=== PATIENT | female | born 1985 | race Caucasian/White ===

== ENCOUNTER 2018-08-16 14:24 | Emergency (ER) | payer OTHER ==
[2018-08-16 14:42] VITALS: RESP 18
--- NOTE | 2018-08-16 15:18 | ED ---
General Adult HPI - General Chief complaint: Abdominal Pain Stated complaint: Female /cramps Source: patient, RN notes reviewed, old records reviewed Mode of arrival: ambulatory Limitations: no limitations - History of Present Illness Initial comments: 32-year-old female patient with past medical history of tubal ligation, menstrual cramping, heroin abuse presents to ER for menstrual cramping pain. Patient states that she has experienced symptoms of moderate to heavy menstrual cramping since she was 13. Patient states she follows up with Dr. Tiara Clark out of [place] for her stiff neck loader care. Patient states that the cramping sensation she is experiencing is in her bilateral adnexal region, consistent with symptoms she has had in the past. Pt denies that these cramps are worse than what she has experienced in past. Patient has experienced symptoms for approximately 2 days, since onset of menses. Patient has had a tubal ligation, does not have concern for STI's. Patient denies new onset discharge, dysuria, states menstruation is at baseline. Patient denies chest pain, shortness of breath, nausea vomiting diarrhea, fever or chills. Systemic: Pt denies fatigue, myalgia, fever/chills, rash. Pt denies weakness, night sweats, weight loss. Neuro: Pt denies headache, visual disturbances, syncope or pre-syncope. HEENT: Pt denies ocular discharge or irritation, otalgia, rhinorrhea, pharyngitis or notable lymphadenopathy. Cardiopulmonary: Pt denies chest pain, SOB, heart palpitations, dyspnea on exertion. Abdominal/GI: Pt denies n/v/d. : Pt denies dysuria, burning w/ urination, frequency/urgency. Denies new onset urinary or bowel incontinence. MSK: Pt denies myalgia, loss of strength or function in extremities. Neuro: Pt denies new onset weakness, paresthesias. - Related Data Allergies Allergy/AdvReac Type Severity Reaction Status Date / Time No Known Allergies Allergy Verified 08/16/18 14:42 Review of Systems ROS Statement: Those systems with pertinent positive or pertinent negative responses have been documented in the HPI. ROS Other: All systems not noted in ROS Statement are negative. Past Medical History Past Medical History: No Reported History History of Any Multi-Drug Resistant Organisms: None Reported Past Surgical History: Tubal Ligation Past Psychological History: No Psychological Hx Reported Smoking Status: Current every day smoker Past Alcohol Use History: None Reported Past Drug Use History: Marijuana General Exam - General Exam Comments Initial Comments: Constitutional: NAD, AOX3, Pt has pleasant affect. HEENT: NC/AT, trachea midline, neck supple, no lymphadenopathy. Posterior pharynx non erythematous, without exudates. External ears appear normal, without discharge. Mucous membranes moist. Eyes PERRLA, EOM intact. There is no scleral icterus. No pallor noted. Cardiopulmonary: RRR, no murmurs, rubs or gallops, no JVD noted. Lungs CTAB in anterior and posterior hebert. No peripheral edema. Abdominal exam: Abdomen soft and non-distended. Abdomen non-tender to palpation in all 4 quadrants. Bowel sounds active in LLQ. No hepatosplenomegaly. No ecchymosis. No guarding or rigidity. Neuro: CN II-XII grossly intact. No nuchal rigidity. MSK: No posterior calf tenderness bilaterally, homans sign negative bilaterally. Posterior tibialis and radial pulse +2 bilaterally. Sensation intact in upper and lower extremities. Full active ROM in upper and lower extremities, 5/5 stregnth. Limitations: no limitations Course Vital Signs 08/16/18 08/16/18 14:39 16:40 Temperature 98.0 F 97.9 F Pulse Rate 82 102 H Respiratory 18 18 Rate Blood Pressure 116/76 112/72 O2 Sat by Pulse 99 97 Oximetry Medical Decision Making - Medical Decision Making 32-year-old female patient with past medical history of tubal ligation, menstrual cramping, heroin abuse presents to ER for menstrual cramping pain. Patient states that she has experienced symptoms of moderate to heavy menstrual cramping since she was 13. Patient states she follows up with Dr. Tiara Clark out of [place] for her stiff neck loader care. Patient states that the cramping sensation she is experiencing is in her bilateral adnexal region, consistent with symptoms she has had in the past. Physical exam displayed a nontender abdomen, nontender adnexal region. No ecchymoses, no guarding or rigidity. Physical exam of cardiopulmonary, abdominal, HEENT, neuro, MSK systems did not display acute pathology. A UA and hCG was conducted which was non-impressive. Patient was given Tylenol in ED, symptoms improved moderately. Patient diagnosed with dysmenorrhea. Patient to follow-up with her private [employer] in 1-2 days. Patient to follow primary care provider in 1-2 days. Patient to use over-the- counter Tylenol/Motrin as needed for pain/cramping. Patient verbalized understanding of this plan. Patient to return to ED if new symptoms develop including worsening pain, he vaginal discharge, chest pain, shortness of breath , any other new symptoms. Case discussed with Dr. Mane. - Lab Data Lab Results 08/16/18 08/16/18 Range/Units 15:45 15:45 Urine Color Yellow Urine Appearance Cloudy H (Clear) Urine pH 6.5 (5.0-8.0) Ur Specific [place] 1.025 (1.001-1.035) Urine Protein Trace H (Negative) Urine Glucose (UA) Negative (Negative) Urine Ketones Negative (Negative) Urine Blood Moderate H (Negative) Urine Nitrite Negative (Negative) Urine Bilirubin Negative (Negative) Urine Urobilinogen 2.0 (<2.0) mg/dL Ur Leukocyte Esterase Trace H (Negative) Urine RBC >182 H (0-5) /hpf Urine WBC 2 (0-5) /hpf Ur Squamous Epith Cells 3 (0-4) /hpf Urine Mucus Rare H (None) /hpf Urine HCG, Qual Not Detected (Not Detectd) Disposition Clinical Impression: Menstrual pain Disposition: HOME SELF-CARE Condition: Good Instructions: Dysmenorrhea (ED) Additional Instructions: Patient to adhere to previously discussed treatment plan and will take medication(s) as directed. Patient to follow up with PCP in 1-2 days. Patient to return to ED if symptoms do not improve. Is patient prescribed a controlled substance at d/c from ED?: No Referrals: None,Stated [Primary Care Provider] - 1-2 days Time of Disposition: 17:40
[2018-08-16] MEDS ORDERED: ACETAMINOPHEN TAB 325 MG TAB PO STA (15:20)
[2018-08-16 16:15] LABS: Appearance,Urine Cloudy (Clear); Bilirubin,Urine Negative (Negative); Blood,Urine Moderate (Negative); Color,Urine Yellow; Glucose,Urine (UA) Negative (Negative); Ketones,Urine Negative (Negative); Leukocyte Esterase,Urine Trace (Negative); Mucus,Urine Rare /hpf; Nitrite,Urine Negative (Negative); PH, Urine 6.5 (5.0-8.0); Protein,Urine Trace (Negative); RBC,Urine >182 /hpf (0-5); Specific Gravity,Urine 1.025 (1.001-1.035); Squamous Epithelial Cell,Urine 3 /hpf (0-4)
[2018-08-16 16:43] VITALS: BP 112/72; PULSE 102; TEMP 97.9
== END 2018-08-16 16:40 | disposition home or self-care (01) ==
LOC: EC 14:24
DX: N94.6 Dysmenorrhea, unspecified (principal); F17.200 Nicotine dependence, unspecified, uncomplicated; Z98.51 Tubal ligation status
CPT/HCPCS: 81001; 81025; 99284